=== PATIENT | female | born 2000 | race Caucasian/White ===

== ENCOUNTER → 2025-03-05 15:37 | Outpatient (BNVA) | payer OTHER, SELFPAY | PROVIDERS: PCP Family Medicine; Visit Provider Family Medicine | DX: R14.0 Abdominal distension (gaseous) (principal); Z13.6 Encounter for screening for cardiovascular disorders; L65.9 Nonscarring hair loss, unspecified | CPT/HCPCS: 80053; 82785; 84443; 85025; 86001; 86003; 86140 ==

== ENCOUNTER → 2025-03-12 14:55 | Outpatient (BNVA) | payer OTHER, SELFPAY | PROVIDERS: PCP Family Medicine; Visit Provider Family Medicine | DX: R14.0 Abdominal distension (gaseous) (principal) | CPT/HCPCS: 86003; 86008 ==